=== PATIENT | female | born 1970 | race Caucasian/White ===

== ENCOUNTER 2017-01-09 16:05 | Emergency (ER) | payer MEDICAID ==
--- NOTE | ~2017-01-09 | ER ---
PATIENT'S NAME: KOLTON CLAROS [facility] AGE: 46 Y [address] ROOM: [place] [address] LOCATION: ED ADMIT DATE: 01/09/2017 ER/Outpatient Report DISCHARGE DATE: 01/09/2017 FAMILY PHYSICIAN: Deshawn Garber MD ATTENDING PHYSICIAN: Ely Guzman Time of Patient's Arrival: 1605 hours. Time of Patient's Evaluation: 1625 hours. CHIEF COMPLAINT: Right upper quadrant abdominal pain and vomiting. HISTORY OF PRESENT ILLNESS: This is a 46-year-old female who presents to the ER, who states that she started having some right upper quadrant abdominal pain last night, but then acutely got worse today. She states that she had a similar episode of this a month ago, on which she was evaluated in [place], and she thought at that time she was having chest pain, but they thought it was all stemming from her gallbladder since all of her other labs looked okay. She states that she has had no other episodes of this until today. She describes her pain as a cramping pain, it does radiate into her back and makes her feel nauseated and she has had some emesis as well from this. She feels like she has been having some chills, but has not checked for any fever. She did see Dr. Garber this last week and had some lower abdominal pain at that time and she was diagnosed with pelvic inflammatory disease. She states she has been on a couple of antibiotics for that and those symptoms have improved. The patient denies any other problems at this time. ALLERGIES: NO KNOWN ALLERGIES. MEDICATIONS: Please see medication list in nurse's notes. PAST MEDICAL HISTORY: Seizures. PAST SURGERIES: Tonsillectomy, , and she has had a tubal ligation. SOCIAL HISTORY: Denies smoking, drug, or alcohol use. REVIEW OF SYSTEMS: All systems were reviewed and were negative with the exception of those PATIENT'S NAME: KOLTON CLAROS [facility] AGE: 46 Y [address] ROOM: [place], [place] [address] LOCATION: ED ADMIT DATE: 01/09/2017 ER/Outpatient Report DISCHARGE DATE: 01/09/2017 FAMILY PHYSICIAN: Deshawn Garber MD ATTENDING PHYSICIAN: Ely Guzman discussed in the HPI. PHYSICAL EXAMINATION: VITAL SIGNS: Weight 103 kg taken, blood pressure is 116/85, pulse 109, respirations 20, temperature 97.2 degrees tympanically, and saturations 97% on room air. Mackenzie Coma Score is 15. GENERAL: Alert and obese female, in mild distress. LUNGS: Clear to auscultation bilaterally. HEART: Regular rate and rhythm. ABDOMEN: Soft. She has mild tenderness with palpation in her right upper quadrant. She has no guarding, no rebound tenderness. She has good bowel sounds throughout. No masses were palpated. EXTREMITIES: No clubbing, cyanosis, or edema. Has full range of motion of all limbs. SKIN: Warm, dry, and intact. LABORATORY DATA: CBC: White count is 11.5, hemoglobin is 14.3, platelets are 413, and ANC is 7.8. CMS: Alkaline phosphatase 59, AST 82, ALT 100, BUN 10, creatinine 0.9, sodium 140, potassium 3.8. Amylase is 30, lipase is 90. TSH is 2.260. Ultrasound of the right upper quadrant shows gallstones and some mild wall thickening consistent with cholelithiasis. IMPRESSION: Right upper quadrant pain. ASSESSMENT AND PLAN: The patient rested comfortably here her entire stay. She did not want any pain medication until just prior to leaving. We did give her 2 Percocet p.o. here for that. The patient will be dismissed home with prescriptions for Zofran and Percocet to use as directed. I would like her to monitor her symptoms closely, and follow up with her primary care physician tomorrow. The patient understands and agrees with care. TERI PALOMARES PA-C FOR MD PAOLA ARMENTA/delfin /[id number] d: t: 01/18/17 1613, OUTPATIENT REPORT
[2017-01-09 17:27] LABS: BASOPHIL # 0.1 K/uL (0.0-0.2); BASOPHIL % 0.7 %; EOSINOPHIL # 0.2 K/uL (0.0-0.5); EOSINOPHIL % 1.5 %; HEMATOCRIT 43.8 % (33.0-46.0); HEMOGLOBIN 14.3 g/dL (10.0-15.0); IMMATURE GRANULOCYTE # 0.1 K/uL (0.0-0.3); IMMATURE GRANULOCYTE % 0.4 %; LYMPHOCYTE # 2.4 K/uL (0.8-4.0); LYMPHOCYTE % 20.9 %; MCH 29.7 pg (27.0-34.0); MCHC 32.6 gm/dL (32.0-36.5); MCV 91.1 fl (83.0-98.0); MONOCYTE % 8.6 %; NEUTROPHIL # (ANC) 7.8 K/uL (1.8-7.8); NEUTROPHIL % 67.9 %; NRBC % 0 /100WBC (0-0.00); PLATELET COUNT 413 K/uL (150-450); RBC 4.81 M/uL (3.50-5.50); RDW-CV 12.3 % (11.9-14.6); WBC 11.5 K/uL (4.0-11.0)
[2017-01-09 17:49] LABS: ALBUMIN 3.5 gm/dL (3.5-5.0); ALK PHOS 59 IU/L (33-138); ALT 100 IU/L (12-78); ANION GAP 13.8 (10.0-19.0); AST 82 IU/L (10-40); BLOOD UREA NITROGEN 10 mg/dL (6-24); CALCIUM 8.8 mg/dL (8.5-10.5); CHLORIDE 107 mMol/L (96-110); CO2 23 mMol/L (22-32); CREATININE 0.9 mg/dL (0.5-1.1); ESTIMATED GFR (MDRD EQUATION) > 60; POTASSIUM 3.8 mMol/L (3.7-5.1); SODIUM 140 mMol/L (135-145); TOTAL BILIRUBIN 0.3 mg/dL (0.0-1.5); TOTAL PROTEIN 7.5 g/dL (6.0-8.4)
[2017-01-15] MEDS ORDERED: FLAGYL500 MG PO (10:45)
[2017-01-15] MEDS ORDERED: DOXYCYCLINE100 MG PO (10:46)
[2017-01-15] MEDS ORDERED: ZOFRAN8 MG SL (10:47)
[2017-01-15] MEDS ORDERED: LAMOTRIGINE ER300 MG PO (10:47)
[2017-01-15] MEDS ORDERED: IMITREX100 MG PO (10:49)
== END 2017-01-09 18:13 | disposition disaster alternative care site (69) ==
LOC: GMED 16:05
PROVIDERS: Physician Assistant Medical
DX: R10.11 Right upper quadrant pain (principal); Z98.51 Tubal ligation status; Z98.890 Other specified postprocedural states; Z79.899 Other long term (current) drug therapy

== ENCOUNTER 2017-01-16 05:41 | Day surgery (SDC) | payer MEDICAID ==
[~2017-01-16] VITALS: Ht 167.6 cm; Wt 101.6 kg
--- NOTE | ~2017-01-16 | OR ---
PATIENT'S NAME: KOLTON CLAROS [facility] AGE: 46 Y [address] ROOM: [place] [address] [place] [facility] [place]: 01/16/2017 OR/Procedure Report DISCHARGE DATE: FAMILY PHYSICIAN: Deshawn Garber MD ATTENDING PHYSICIAN: Brooke Liu SURGEON: Brooke Liu MD OSTRICH FARMER: Kenya Luo PA-C. DATE OF PROCEDURE: 01/16/2017 PREOPERATIVE DIAGNOSIS: Cholelithiasis with cholecystitis. POSTOPERATIVE DIAGNOSES: 1. Cholelithiasis with cholecystitis. 2. Inflamed omentum epiploica. 3. Pigmented lesion in the umbilicus. PROCEDURE PERFORMED: 1. Laparoscopic cholecystectomy. 2. Resection of inflamed piece of omentum. ANESTHESIA: General endotracheal. ESTIMATED BLOOD LOSS: 10 mL. SPECIMEN: 1. Gallbladder. 2. Inflamed omentum. 3. Pigmented mole from the umbilicus. REASON FOR PROCEDURE: The patient is a 46-year-old female, who recently has been having several day history of severe midepigastric and right upper quadrant pain. An ultrasound confirmed cholelithiasis with gallbladder wall thickening. We discussed options and she elected to proceed with cholecystectomy. FINDINGS: The gallbladder was mildly thick walled with several moderate-sized stones within it. The cystic duct was normal in size. While prepping the patient, she was noted to have a 5 mm pigmented mole at the base of her umbilicus. We did go ahead and removed this. She also had an inflamed omental epiploica that was adherent to the abdominal wall in the right upper quadrant as well. We did resect this just to make sure there was no evidence of malignancy associated with it as it did have a somewhat nodular look to it. PROCEDURE IN DETAIL: The patient was taken to the operating suite and placed in the supine position. General endotracheal anesthesia was obtained, the PATIENT'S NAME: KOLTON CLAROS [facility] AGE: 46 Y [address] ROOM: [place] [address] [place] [facility] [place]: 01/16/2017 OR/Procedure Report DISCHARGE DATE: FAMILY PHYSICIAN: Deshawn Garber MD ATTENDING PHYSICIAN: Brooke Liu abdomen was prepped with ChloraPrep and sterilely draped. Marcaine was infiltrated into the incision sites. A 2 cm transverse infraumbilical incision was made in the previous scar. The fascia was grasped and elevated and a Veress needle was used to obtain a pneumoperitoneum. An 11 mm trocar was then passed across the abdominal wall. On inspection of the abdomen, there was noted to be 4 to 5 cm area of inflamed omentum that was adherent to the anterior lateral abdominal wall in the right upper quadrant. The omentum was somewhat firm and nodular in appearance. There was no other ascites or nodularity in the abdomen. We went ahead and freed up this omentum from the lateral wall. We then placed 3 other subcostal 5 mm trocars under direct visualization. The gallbladder was grasped and elevated. There was some adhesions to the lower body neck area that had to be taken down. We then dissected through the neck area of the gallbladder. The cystic duct and cystic artery were individually skeletonized up to the gallbladder wall. These were stapled proximally and distally and then divided. The gallbladder was then mobilized free of the liver bed. This was done primarily with cautery. There was some chronic inflammation in the gallbladder wall. Once fully mobilized, we then used cautery to divide the inflamed area of omentum to make sure there was no bleeding from this area. We then placed the omentum and the gallbladder in an endoscopic retrieval bag and brought these out from the umbilicus. We did have to stretch the fascial opening somewhat. We then washed out the right upper quadrant. All irrigation was removed. There was no evidence of bleeding or bile leak. The abdomen was scanned. No other abnormalities were seen. A Vicryl suture was then used to close the fascia at the umbilicus. This was done using an Endo Close needle. The skin incisions were all closed with subcuticular Monocryls. Benzoin, Steri-Strips, and gauze dressings were applied. Before applying the bandage to the umbilicus, we did inspect this 5 to 6 mm somewhat pigmented mole at the very bottom of the umbilicus. The nurse had noted this during the initial prep. I went ahead and clipped this off the base and sent this as a separate specimen. The patient tolerated the procedure well. POSTPROCEDURE PLAN: The patient will be discharged home when awake and alert. We will give her prescription for Buckner for pain control. We will see her back in the office in 2 weeks for recheck. She is to call sooner if any major problems. BROOKE LIU MD JTM/modl PATIENT'S NAME: KOLTON CLAROS [facility] AGE: 46 Y [address] ROOM: [place] [address] [place] [facility] [place]: 01/16/2017 OR/Procedure Report DISCHARGE DATE: FAMILY PHYSICIAN: Deshawn Garber MD ATTENDING PHYSICIAN: Brooke Liu /[id number] CC: Deshawn Garber MD d: 01/16/17 1202 t: 01/20/17 0903, OPERATIVE SUMMARY
[~2017-01-16 05:41] MED LIST: DOXYCYCLINE100 MG PO; FLAGYL500 MG PO; IMITREX100 MG PO; LAMOTRIGINE ER300 MG PO; ZOFRAN8 MG SL
[2017-01-16] MEDS ORDERED: NORCO 5-325 TA1 EACH PO (08:56)
--- NOTE | 2017-01-16 11:00 | NUR ---
HAND OFF OF CARES TO FIDELINA Slaughter RN AT 0977.
== END 2017-01-16 10:40 | disposition disaster alternative care site (69) ==
LOC: GSDC 05:41
PROC: 0FT44ZZ Resection of Gallbladder, Percutaneous Endoscopic Approach (ICD-10-PCS; principal; 2017-01-16)
DX: K80.20 Calculus of gallbladder without cholecystitis without obstruction (principal); K65.4 Sclerosing mesenteritis; L91.8 Other hypertrophic disorders of the skin; K21.9 Gastro-esophageal reflux disease without esophagitis; F32.9 Major depressive disorder, single episode, unspecified; F41.1 Generalized anxiety disorder; F41.0 Panic disorder [episodic paroxysmal anxiety]; G40.909 Epilepsy, unspecified, not intractable, without status epilepticus; Z87.891 Personal history of nicotine dependence; Z98.51 Tubal ligation status; Z98.890 Other specified postprocedural states; Z88.5 Allergy status to narcotic agent; Z79.899 Other long term (current) drug therapy
CPT/HCPCS: J0694; J1100; J1885; J2001; J2250; J2405; J3010; J7120